=== PATIENT | female | born 1965 | race Caucasian/White ===

== ENCOUNTER → 2016-08-07 | Outpatient (CLI) | payer BC, OTHER ==
[~2016-08-07] MED LIST: ALBU1AER9 INH; AZEL137S6 NAE; CALC250T8 PO; CHOL100027 PO; CYAN10004 PO; DICL1GEL12 TOP; FLNIN NAE; LEVO100T7 PO; MULT-506 PO; NORT50CA PO; OMEG10007 PO; OMEP20TA PO; TAMO20TA5 PO; TYLOTC500 PO; VITA400C15 PO
--- NOTE | 2016-08-07 09:33 | DIAGNOSTIC IMAGING REPORT ---
RIGHT KNEE 4 OR MORE CLINICAL HISTORY: Right knee pain and swelling COMPARISON: None. DISCUSSION: No acute fractures are visualized. There are osteoarthritic changes most pronounced involving the medial joint compartment. There is an equivocal trace joint effusion. No destructive lesions are evident. IMPRESSION: Mild osteoarthritic change. No acute fractures. Electronically signed by: Chago Jack M.D. 08/07/2016 9:31 AM Dictated Date/Time: 08/07/2016 9:30 AM
== END | disposition home or self-care (01) ==
LOC: C.RDSM 09:14
PROVIDERS: ATTEND Internal Medicine
DX: M25.561 Pain in right knee (principal)

== ENCOUNTER → 2016-12-27 | Outpatient (CLI) | payer BC ==
--- NOTE | 2016-12-27 09:25 | DIAGNOSTIC IMAGING REPORT ---
L KNEE 4 OR MORE HISTORY: 51 years-old Female LEFT KNEE PAIN S/P FALL acute left knee pain status post fall. Pain is most pronounced anteriorly within the region of the proximal tibia. COMPARISON: None available. TECHNIQUE: Frontal, lateral, tunnel and sunrise views of the left knee. FINDINGS: There is mild tricompartmental osteoarthritis, most pronounced in the medial compartment. There is no acute fracture or dislocation identified. There is a small joint effusion. No osteochondral defect or intra-articular loose body identified. IMPRESSION: 1. Small joint effusion without acute fracture or dislocation. 2. Mild tricompartmental osteoarthritis. The above report was generated using voice recognition software. It may contain grammatical, syntax or spelling errors. Electronically signed by: Vic Penn M.D. 12/27/2016 9:24 AM Dictated Date/Time: 12/27/2016 9:22 AM
== END | disposition home or self-care (01) ==
LOC: C.RDSM 09:09
PROVIDERS: ATTEND Internal Medicine
DX: M25.562 Pain in left knee (principal); M25.462 Effusion, left knee

== ENCOUNTER → 2017-05-30 | Outpatient (CLI) | payer BC ==
[2017-05-30 12:53] LABS: BASO % 0.3 %; BASO ABS # 0.02 K/uL (0-0.2); EOS % 2.2 %; EOS ABS # 0.14 K/uL (0-0.5); HEMATOCRIT 37.8 % (37-47); HEMOGLOBIN 12.4 g/dL (12.0-16.0); IG# 0.02 K/uL (0.00-0.02); LYMPH % 23.3 %; LYMPH ABS # 1.49 K/uL (1.2-3.4); MEAN CELL VOLUME 81.5 fL (80-100); MEAN CORPUSCULAR HEMOGLOBIN 26.7 pg (25-34); MEAN CORPUSCULAR HGB CONC 32.8 g/dl (32-36); MEAN PLATELET VOLUME 9.5 fL (7.4-10.4); MONO % 5.5 %; MONO ABS # 0.35 K/uL (0.11-0.59); NEUT % 68.4 %; NEUT ABS # 4.38 K/uL (1.4-6.5); PLATELET COUNT 308 K/uL (130-400)
[2017-05-30 13:39] LABS: ALBUMIN 3.7 gm/dl (3.4-5.0); ALT/SGPT 37 U/L (12-78); AST/SGOT 21 U/L (15-37); BLOOD UREA NITROGEN 17 mg/dl (7-18); CALCIUM 9.3 mg/dl (8.5-10.1); CARBON DIOXIDE 27 mmol/L (21-32); CHOLESTEROL 234 mg/dl (0-200); GLUCOSE 95 mg/dl (70-99); LDL CHOLESTEROL CALCULATED 157 mg/dl; SODIUM 137 mmol/L (136-145); TOTAL PROTEIN 7.5 gm/dl (6.4-8.2)
[2017-05-30 13:47] LABS: ALKALINE PHOSPHATASE 94 U/L (45-117)
== END | disposition home or self-care (01) ==
LOC: C.LABPBG 08:52
PROVIDERS: ATTEND Neuromusculoskeletal Medicine & OMM
DX: E89.0 Postprocedural hypothyroidism (principal); E66.9 Obesity, unspecified; R73.9 Hyperglycemia, unspecified; E88.81 Metabolic syndrome and other insulin resistance

== ENCOUNTER → 2017-11-01 | Outpatient (CLI) | payer BC ==
[2017-11-01 11:31] LABS: HEMOGLOBIN A1C 5.8 % (4.5-5.6)
== END | disposition home or self-care (01) ==
LOC: C.LAB1850 10:37
PROVIDERS: ATTEND Internal Medicine Endocrinology, Diabetes & Metabolism
DX: C73 Malignant neoplasm of thyroid gland (principal); E55.9 Vitamin D deficiency, unspecified; R73.9 Hyperglycemia, unspecified